=== PATIENT | female | born 1960 | race Hispanic/Latino ===

== ENCOUNTER 2016-08-26 10:33 | Outpatient (CLI) | payer MEDICAID ==
--- NOTE | 2016-08-26 11:09 | Mammography Report ---
Bilateral mammogram: Compared to 08/07/15. CAD study utilized. Findings: Predominance adipose tissue bilaterally. No mass or microcalcification. Benign axillary nodes. Impression: Benign findings. Annual followup recommended. BI-RADS CATEGORY: 2 = Benign ACR BI-RADS MAMMOGRAPHIC CODES: 0 = Needs additional imaging evaluation; 1 = Negative; 2 = Benign; 3 = Probably benign; 4 = Suspicious; 5 = Malignant; 6 = Known biopsy-proven malignancy COMMENT: 1. Dense breast tissue, i.e., adenosis, fibrocystic changes, etc., may obscure an underlying neoplasm. 2. Approximately 10% of cancers are not detected with mammography. 3. A negative mammography report should not delay biopsy if a clinically suspicious mass is present. COMMENT: Patient follow-up letters are generated in [employer].
== END 2016-08-26 10:34 | disposition home or self-care (01) ==
LOC: MAMMO 10:33
PROVIDERS: ATTEND Internal Medicine Hematology & Oncology
DX: Z12.31 Encounter for screening mammogram for malignant neoplasm of breast (principal); I10 Essential (primary) hypertension; F31.9 Bipolar disorder, unspecified; F41.9 Anxiety disorder, unspecified; Z87.891 Personal history of nicotine dependence
CPT/HCPCS: 77067; G0202

== ENCOUNTER 2017-08-28 09:32 | Outpatient (CLI) | payer MEDICAID ==
--- NOTE | 2017-08-28 14:23 | Mammography Report ---
BILATERAL DIGITAL SCREENING MAMMOGRAM with CAD: 08/28/17 09:32:00 CLINICAL: Routine screening. COMPARISON: 08/26/16 and 08/07/15 FINDINGS: There are bilateral scattered areas of fibroglandular density.No mass, architectural distortion or suspicious calcifications. IMPRESSION: No mammographic evidence of malignancy. BI-RADS CATEGORY: 1 -- Negative RECOMMENDATION: Routine mammographic screening in one year. COMMENT: Patient follow-up letters are generated by our [employer] application.
== END 2017-08-28 09:33 | disposition home or self-care (01) ==
LOC: MAMMO 09:32
PROVIDERS: ATTEND Internal Medicine
DX: Z12.31 Encounter for screening mammogram for malignant neoplasm of breast (principal)
CPT/HCPCS: 77067

== ENCOUNTER 2018-08-11 10:33 | Outpatient (CLI) | payer MEDICAID ==
[2018-08-11 11:37] LABS: Blood Urea Nitrogen 15 mg/dL (7-17)
--- NOTE | 2018-08-11 13:47 | Cat Scan Report ---
PROCEDURE: CT NECK W CON, CT CHEST W CON TECHNIQUE: Computerized axial tomography of the soft tissue neck and chest was performed following t he IV injection of iodinated nonionic contrast. Coronal and sagittal reconstructed imaging provided. CT DOSE LENGTH PRODUCT: 1819.1 mGy-cm. HISTORY: PAPILLARY THYROID CANCER COMPARISONS: None currently available. FINDINGS: NECK: Nasopharynx: No enlarged tonsils. No nasal cavity lesions identified. No mass. Oropharynx: [place] and lingual tonsils are within normal limits. Floor of the mouth is unremarkable . Pharynx: Epiglottis is unremarkable. Aryepiglottic fold is unremarkable. Larynx: True and false cords are symmetrical. No significant airway compromise. Prominent right level 1B lymph node measures 1.2 x 1.0 cm. Prominent left level 1B lymph node measure s 1.5 x 0.7 cm. Prominent bilateral level 2A and 2B lymph nodes noted. One of the larger lymph nodes on the right ada sure 1.7 x 0.9 cm and one of the larger lymph nodes on the left measures 1.0 x 0.6 cm. Prominent left level 3 lymph node measures 1.0 x 0.7 cm. Enlarged right level 3 lymph node measures 1 .0 x 0.8 cm. Prominent right level 5A lymph node measures 0.9 x 0.7 cm. Vascular structures are unremarkable. No aneurysm. No dissection. No filling defects. Fatty atrophy the left parotid gland. Right parotid gland is unremarkable. The submandibular glands are unremarkable. Thyroid gland is not clearly identified. Well-defined lytic lesion in the left mandible on series 3:34 measures 1.9 x 1.0 cm. Partially imaged paranasal sinuses are unremarkable. Partially imaged temporal bones are unremarkable. Cervical spondylosis. CHEST: Numerous bilateral pulmonary nodules identified. One of the larger nodules on the right measures 7.6 mm and one of the larger nodules on the left measures 10.3 mm. Mild interseptal thickening identified diffusely. No pneumothorax. No large consolidation. No effusion. Minimal emphysema. Main pulmonary artery is unremarkable. No aneurysm. No dissection. Major branch arteries are within normal limits. [id number] atherosc lerotic disease. Moderate cardiomegaly. No pericardial effusion. Coronary artery disease. There is no axillary adenopathy. There is no hilar or mediastinal mass or adenopathy. Limited images of the thyroid gland are unremarkable. Limited images of the esophagus are unremarkable. Liver: Decreased heterogeneous attenuation may represent hepatocellular disease, fatty infiltration, or cirrhosis. No suspicious lesion. Bones: No suspicious osseous lesions on this limited examination of the skeleton. Metastatic disease better evaluated with bone scan. Degenerative changes are present in the spine. IMPRESSION: * Numerous bilateral pulmonary nodules. Suspect metastatic disease. Mild interseptal thickening may be related. * Cervical adenopathy. * Thyroid gland is not clearly identified and may have been surgically removed. * Nonspecific well-defined lytic lesion in the left mandible. Differential diagnosis includes dentig erous lesion versus metastatic disease. No bony destruction. * Cardiomegaly. * Fatty liver. This document is electronically signed by Roni Armijo MD., August 11 2018 01:44:35 PM ET
== END 2018-08-11 10:34 | disposition home or self-care (01) ==
LOC: CT 10:33
PROVIDERS: ATTEND Internal Medicine Hematology & Oncology
DX: C73 Malignant neoplasm of thyroid gland (principal); K76.0 Fatty (change of) liver, not elsewhere classified; I11.9 Hypertensive heart disease without heart failure; R59.9 Enlarged lymph nodes, unspecified; I70.90 Unspecified atherosclerosis; I25.10 Atherosclerotic heart disease of native coronary artery without angina pectoris; E03.9 Hypothyroidism, unspecified; Z90.49 Acquired absence of other specified parts of digestive tract; Z90.710 Acquired absence of both cervix and uterus
CPT/HCPCS: 36415; 70491; 71260; 82565; 84520; Q9967

== ENCOUNTER 2018-08-31 06:54 | Outpatient (CLI) | payer MEDICAID ==
--- NOTE | 2018-08-31 08:12 | Mammography Report ---
DIGITAL SCREENING MAMMOGRAM WITH CAD INDICATION: Routine screening mammography. TECHNIQUE: Digital bilateral 2D mammography was obtained in the craniocaudal and mediolateral obliq ue projections. This examination was interpreted with the benefit of Computer-Aided Detection analysi s. COMPARISON: 08/28/2017 FINDINGS: Breast Density: The breasts are heterogeneously dense, which may obscure small masses. There is no evidence of dominant mass, suspicious calcifications or architectural distortion in eith er breast. IMPRESSION: BI-RADS Category 2: Benign. No mammographic evidence of malignancy. Recommend routine screening ma mmography in one year. A "normal" or negative report should not discourage follow up or biopsy of a clinically significant f inding. A written summary of these findings will be mailed to the patient. The patient will be entered into a mammography reporting system which will generate a reminder letter for the patient's next appointmen t at the appropriate interval. The [employer] recommends yearly mammograms starting at age 40 and continuing as l bianka as a woman is in good health. Breast MRI is recommended for women with an approximate 20-25% or greater lifetime risk of breast cancer, including women with a strong family history of breast or ova [place] cancer or who have been treated for Hodgkin's disease. Signer Name: Srinath Puente MD Signed: 08/31/2018 8:08 AM Workstation Name: [id number]
== END 2018-08-31 06:55 | disposition home or self-care (01) ==
LOC: MAMMO 06:54
PROVIDERS: ATTEND Internal Medicine
DX: Z12.31 Encounter for screening mammogram for malignant neoplasm of breast (principal); I10 Essential (primary) hypertension; Z90.710 Acquired absence of both cervix and uterus
CPT/HCPCS: 77067

== ENCOUNTER 2018-12-29 09:38 | Outpatient (CLI) | payer MEDICAID ==
--- NOTE | 2018-12-29 12:10 | XRay Report ---
RIGHT SHOULDER, 3 VIEWS INDICATION: Right shoulder pain. COMPARISON: None. IMPRESSION: No acute osseous or soft tissue abnormality. No significant DJD. LUMBOSACRAL SPINE, 5 VIEWS INDICATION: M54.5 LOW BACK PAIN. COMPARISON: None. IMPRESSION: Normal alignment. The disc spaces are within normal limits. There is moderate diffuse f acet arthropathy/hypertrophy. No evidence for high-grade neural foraminal narrowing on the oblique im ages. No pars defect No acute osseous or soft tissue abnormality. LEFT HIP, 2 VIEWS INDICATION: Left hip pain. COMPARISON: None. IMPRESSION: No acute osseous or soft tissue abnormality. No significant DJD. Signer Name: Waldemar Nunn Jr, MD Signed: 12/29/2018 12:05 PM Workstation Name: [id number]
== END 2018-12-29 09:39 | disposition home or self-care (01) ==
LOC: XRAY 09:38
PROVIDERS: ATTEND Physical Medicine & Rehabilitation
DX: M54.5 Low back pain (principal); M25.552 Pain in left hip; M25.511 Pain in right shoulder; I10 Essential (primary) hypertension; Z90.49 Acquired absence of other specified parts of digestive tract; Z90.89 Acquired absence of other organs; Z90.710 Acquired absence of both cervix and uterus; M19.90 Unspecified osteoarthritis, unspecified site; F41.9 Anxiety disorder, unspecified; F31.9 Bipolar disorder, unspecified; F17.200 Nicotine dependence, unspecified, uncomplicated
CPT/HCPCS: 72110